=== PATIENT | male | born 1945 | race American Indian/Alaskan Native ===

== ENCOUNTER 2016-12-20 06:46 | Day surgery (SDC) | payer MEDICARE ==
[~2016-12-20 06:46] MED LIST: NACL 0.9% 1000 ML 1,000 ML IV SCH
[2016-12-20] MEDS ORDERED: WATER FOR IRRIG STERILE IR ONE (07:26)
--- NOTE | 2016-12-20 07:53 | Anesthesia Consultation ---
Anesthesia Consult and Med Hx Date of service: 12/20/16 - Airway Anesthetic Teeth Evaluation: Good ROM Head & Neck: Adequate Mental/Hyoid Distance: Adequate Mallampati Class: Class II Intubation Access Assessment: Probably Good - Pre-Operative Health Status ASA Pre-Surgery Classification: ASA3 Proposed Anesthetic Plan: MAC - Cardiovascular System Hx Hypertension: Yes Hx Coronary Artery Disease: No (high cholesterol) - Gastrointestinal Hx Ulcer: No (gastric CA) - Endocrine Hx Non-Insulin Dependent Diabetes: Yes - Other Systems Hx Cancer: Yes
--- NOTE | 2016-12-20 07:54 | Anesthesia Day of Surgery ---
Anesthesia Day of Surgery - Day of Surgery Patient Examined: Yes Patient H&P Reviewed: Yes Patient is NPO: Yes
[2016-12-20] MEDS ORDERED: DIPRIVAN 10 MG/ML IV ONE ×2 (08:21)
[2016-12-20] MEDS ORDERED: XYLOCAINE MPF 2% ONE (08:28)
--- NOTE | 2016-12-20 08:43 | Post Operative Note ---
Pre-op diagnosis: gastric tumor Post-op diagnosis: same Findings: large ulcerated mass in the antrum. numerous biopsies were obtained. Procedure: EGD Anesthesia: MAC Surgeon: YAHIR SALEH Estimated blood loss: minimal Pathology: list (Jar A/1 - gastric tumor biopsies) Specimen disposition: to lab Condition: stable Disposition: same day
[2016-12-20 09:07] VITALS: BP 115/65
--- NOTE | 2016-12-20 09:58 | Operative Report ---
PROCEDURE: EGD. PREOPERATIVE DIAGNOSIS: Gastric tumor. POSTOPERATIVE DIAGNOSES: Gastric tumor (ulcerated mass in the gastric antrum) ANESTHESIA: Monitored anesthesia care. COMPLICATIONS: No immediate complications. ESTIMATED BLOOD LOSS: Minimal. DESCRIPTION OF PROCEDURE: After consent was obtained, the standard upper Fujinon scope was advanced under direct vision through the mouth and advanced with ease into the second portion of duodenum. The views of the mucosa were good. The patient tolerated the procedure fairly well. FINDINGS: Brenna esophagitis, appears improved from recent EGD. 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 Multiple biopsies were obtained. The duodenum appeared normal. IMPRESSION: 1. Large gastric tumor. 2. Brenna esophagitis. RECOMMENDATIONS: 1. Follow pathology (sent as keating). 2. Complete course of fluconazole for Brenna esophagitis. 3. Send pathology report to patient's oncologist and PCP JOB# [id number] ELZA/NTS CLAYD
--- NOTE | 2016-12-20 10:41 | Post Anesthesia Evaluation ---
- Post Anesthesia Evaluation Patient Participated: Yes Airway Patent: Yes Stable Respiratory Function: Yes Nausea/Vomiting: No Temp > 96.8F: Yes Pain Manageable: Yes Adequeate Hydration: Yes Anesthesia Complications: No
== END 2016-12-20 06:47 | disposition home or self-care (01) ==
LOC: GIO 06:46 → EDBD 08:00
PROVIDERS: ATTEND Internal Medicine Gastroenterology
DX: D49.0 Neoplasm of unspecified behavior of digestive system (principal); K20.8 Other esophagitis; K25.9 Gastric ulcer, unspecified as acute or chronic, without hemorrhage or perforation; I10 Essential (primary) hypertension; E78.00 Pure hypercholesterolemia, unspecified; E11.9 Type 2 diabetes mellitus without complications; Z85.028 Personal history of other malignant neoplasm of stomach
CPT/HCPCS: 43239; 82962; 88305; 88342; J2704; J7030

== ENCOUNTER 2017-04-21 09:16 | Outpatient (CLI) | payer MEDICARE | END 2017-04-21 09:17 | disposition home or self-care (01) | LOC: LABHHL 09:16 | PROVIDERS: ATTEND Internal Medicine Hematology & Oncology | DX: T45.1X5A Adverse effect of antineoplastic and immunosuppressive drugs, initial encounter (principal); C16.3 Malignant neoplasm of pyloric antrum; I11.9 Hypertensive heart disease without heart failure; D49.89 Neoplasm of unspecified behavior of other specified sites; R63.4 Abnormal weight loss; G89.3 Neoplasm related pain (acute) (chronic); E11.51 Type 2 diabetes mellitus with diabetic peripheral angiopathy without gangrene; R60.0 Localized edema; L03.116 Cellulitis of left lower limb; Z79.899 Other long term (current) drug therapy; E66.3 Overweight; D64.81 Anemia due to antineoplastic chemotherapy; E86.0 Dehydration; Z91.81 History of falling; I25.10 Atherosclerotic heart disease of native coronary artery without angina pectoris; I10 Essential (primary) hypertension | CPT/HCPCS: 36415 ==